=== PATIENT | male | born 1990 | race Hispanic/Latino ===

== ENCOUNTER 2020-02-06 10:36 | Outpatient (CLI) | payer SELFPAY ==
[2020-02-06 11:50] LABS: Basophils Percent Auto 0.4 % (0.2-1.2); Eosinophils Absolute Auto 0.1 K/mm3 (0-0.3); Eosinophils Percent Auto 1.8 % (0-4.4); Hematocrit 44.3 % (42.0-52.0); Hemoglobin 14.9 g/dL (14.0-18.0); Immature Granulocyte Absolute 0.01 K/mm3 (0.00-0.031); Immature Granulocyte Percent A 0.2 % (0-0.5); Lymphocytes Absolute Auto 2.06 K/mm3 (0.9-3.2); Lymphocytes Percent Auto 40.2 % (18.3-44.2); Mean Corpuscular HGB Conc 33.6 g/dl (32-36); Mean Corpuscular Hemoglobin 28.7 pg (26-34); Mean Corpuscular Volume 85.2 fl (80-100); Mean Platelet Volume 9.2 fl (7.4-10.4); Monocytes Absolute Auto 0.4 K/mm3 (0.1-0.6); Monocytes Percent Auto 7.8 % (2.6-8.5); Neutrophils Absolute Auto 2.5 K/mm3 (1.3-6.7); Neutrophils Percent Auto 49.6 % (45.5-73.1); Platelet Count Result 241 k/mm3 (150-375); Red Cell Distribution Width 13.2 % (11.5-14.5); White Blood Count 5.1 K/mm3 (4.5-10.0)
[2020-02-06 12:01] LABS: Alanine Aminotransferase 12 U/L (4-50); Albumin Level 4.8 g/dL (3.5-5.1); Alkaline Phosphatase 59 U/L (38-126); Aspartate Amino Transferase 22 U/L (17-59); Bilirubin,Total 2.4 mg/dL (0.2-1.3); Blood Urea Nitrogen 12 mg/dL (9-20); Calcium 9.4 mg/dL (8.4-10.2); Carbon Dioxide 31 mmol/L (22-30); Chloride 101 mmol/L (98-107); Estimated Glomerular Filt Rate > 60; Glucose 87 mg/dL (75-110); Potassium 4.1 mmol/L (3.4-5.0); Sodium 137 mmol/L (137-145)
[2020-02-06 12:17] LABS: Erythrocyte Sedimentation Rate 6 mm/hr (0-20)
[2020-02-06 12:29] LABS: Creatine Kinase 75 U/L (55-170)
== END 2020-02-06 10:37 | disposition home or self-care (01) ==
PROVIDERS: PCP Family Medicine; Visit Provider Family Medicine
DX: K59.00 Constipation, unspecified (principal); R10.9 Unspecified abdominal pain; E04.9 Nontoxic goiter, unspecified; M79.10 Myalgia, unspecified site
CPT/HCPCS: 36415; 80053; 82550; 84443; 85025; 85652

== ENCOUNTER 2020-02-21 17:25 | Emergency (ER) | payer SELFPAY ==
--- NOTE | ~2020-02-21 | XR_ITS ---
EXAMINATION: XR chest 2V DATE: 02/21/2020 17:57 INDICATION: Lower rib pain. Right abdominal pain. TECHNIQUE: Frontal and lateral views of the chest were obtained. COMPARISON: None. FINDINGS: The chest demonstrates clear lungs without pneumonia, pleural effusion, or pneumothorax. Th e heart size is normal. IMPRESSION: 1. No acute cardiopulmonary disease. Reviewed, dictated and finalized at location A.
--- NOTE | ~2020-02-21 | CT_ITS ---
EXAMINATION: CT abdomen pelvis w con DATE: 02/21/2020 20:15 INDICATION: Abdominal pain. TECHNIQUE: Computed tomography (CT) of the abdomen and pelvis was performed with 100 mL Omnipaque 350 intravenous contrast. Automated exposure control and iterative reconstruction technique were employe d. The dose-length product was 182.14 mGy-cm. COMPARISON: None. FINDINGS: The visualized portions of the lung bases demonstrate minimal atelectasis. No pleural effus ion. The heart size is normal. No pericardial effusion. The liver, gallbladder, spleen, pancreas, adr enal glands, and kidneys are normal. There are no dilated loops of bowel. The appendix is normal. The re are no pathologically enlarged lymph nodes. There is no free intraperitoneal fluid. The bones are unremarkable. IMPRESSION: 1. No etiology for the patient's symptoms. Reviewed, dictated and finalized at location A.
[2020-02-21 17:30] VITALS: BP 136/91; PULSE 70; RESP 18; TEMP 36.3; O2SAT 100
--- NOTE | 2020-02-21 17:36 | ED.GENADULT ---
HPI - General Adult General Chief complaint: Abdominal Pain Stated complaint: abd pain Time Seen by Provider: 02/21/20 17:36 Source: patient Mode of arrival: ambulatory Limitations: no limitations History of Present Illness HPI narrative: 29-year-old male patient presents to the [facility] with complaints of upper abdominal pain/lower rib pain for the past 2 weeks. Patient states he also has pain that sometimes radiates to the right shoulder. Denies any fevers, nausea, vomiting or diarrhea. Patient states that sometimes he feels like he has a metallic taste in his mouth. Patient last ate about noon today was able to keep everything down. Denies any pain with urination. Related Data Home Medications Medication Instructions Recorded Confirmed loratadine 10 mg tablet 10 mg PO DAILY 01/04/20 Allergies Allergy/AdvReac Type Severity Reaction Status Date / Time Sulfa (Sulfonamide Allergy Unknown Unknown Verified 02/21/20 17:36 Antibiotics) Review of Systems Review of Systems: Narrative: CONSTITUTIONAL: Denies fever, chills, or sweats. EYES: Denies visual changes, redness, or discharge. ENT: Denies rhinorrhea, congestion, sore throat, or otalgia. CARDIOVASCULAR: Positive bilateral lower chest pain/rib pain that radiates to right shoulder at times, denies palpitations, or edema. RESPIRATORY: Denies cough or dyspnea. GASTROINTESTINAL: Positive bilateral upper abdominal pain, denies nausea, vomiting, or diarrhea. GENITOURINARY: Denies dysuria or hematuria. SKIN: Denies rash or itching. MUSCULOSKELETAL: Denies back pain, joint pain, or myalgia. NEUROLOGIC: Denies headache, numbness, or weakness. PSYCHIATRIC: Denies anxiety or depression. PMFSH Social History Social History Smoking status: Never smoker Second hand tobacco smoke exposure: No Alcohol intake: current Substance use: never Substance use type: does not use Gender identity (if verbalized by the patient): Male Comments At the time of my signature I agree with nursing past medical history, surgical, social, and family history. There is no relevant family history pertinent to the presenting complaint. Exam Narrative: Exam Narrative: GENERAL: Well-appearing, well-nourished, and in no acute distress. HEAD: Normocephalic, atraumatic. EYES: PERRLA and EOMI. ENT: Nares clear, no rhinorrhea or epistaxis. Mucous membranes moist. NECK: Supple. No lymphadenopathy CHEST: Clear to auscultation. No respiratory distress. HEART: Regular rate and rhythm. No murmur heard. Normal peripheral pulses. ABDOMEN: Soft, nontender, nondistended, normal active bowel sounds. EXTREMITIES: Normal range of motion. No edema. SKIN: Warm, dry, no rash. NEURO: No focal deficits. Alert and oriented x3. Course Reevaluation(s) Reevaluation #1: Reevaluated patient. Discussed with patient that his labs overall look well. Patient voiced concerns stating that when he had his labs drawn a couple weeks ago his bilirubin was elevated and was concerned about it being elevated began. Discussed with him that couple weeks ago his bilirubin was 2.3 and outs 2.6. Patient states that his doctor had had a possible discussion of doing an ultrasound on him due to this chronic abdominal pain. Discussed with patient that since he is here we will go ahead and do a CT scan to see if there is anything obvious and then if that looks okay he will just follow-up with his primary doctor. Patient verbalized understanding of this denies any other questions or concerns. Date: 02/21/20 Time: 19:27 Reevaluation #2: Reevaluated patient. Discussed with him the his CT looks good as well as normal blood work. Discussed with patient that we will go ahead and discharge him home with some omeprazole for possible GERD I want him to follow-up with his primary doctor. Discussed with him if he has worsening symptoms such as fevers, chest pain, shortness of breath or worse
--- NOTE | 2020-02-21 17:43 | ECG_ITS ---
Measurements Intervals [place] Rate: 61 P: 72 CA: 124 QRS: 70 QRSD: 96 T: 72 QT: 389 QTc: 393 Interpretive Statements SINUS RHYTHM BASELINE ARTIFACT- I, III, AVL, AVF NORMAL ECG Electronically Signed On 02-21-2020 20:20:29 CDT by Mario Clifford D.O.
[2020-02-21 18:15] LABS: Basophils Percent Auto 0.3 % (0.2-1.2); Eosinophils Absolute Auto 0.1 K/mm3 (0-0.3); Eosinophils Percent Auto 1.1 % (0-4.4); Hematocrit 48.5 % (42.0-52.0); Hemoglobin 16.5 g/dL (14.0-18.0); Immature Granulocyte Absolute 0.01 K/mm3 (0.00-0.031); Immature Granulocyte Percent A 0.1 % (0-0.5); Lymphocytes Absolute Auto 2.37 K/mm3 (0.9-3.2); Lymphocytes Percent Auto 33.6 % (18.3-44.2); Mean Corpuscular Hemoglobin 28.7 pg (26-34); Mean Corpuscular Volume 84.3 fl (80-100); Mean Platelet Volume 9.2 fl (7.4-10.4); Monocytes Absolute Auto 0.4 K/mm3 (0.1-0.6); Monocytes Percent Auto 5.9 % (2.6-8.5); Neutrophils Absolute Auto 4.2 K/mm3 (1.3-6.7); Platelet Count Result 275 k/mm3 (150-375); Red Blood Count 5.75 M/mm3 (4.6-6.20); Red Cell Distribution Width 13.2 % (11.5-14.5); White Blood Count 7.1 K/mm3 (4.5-10.0)
[2020-02-21 18:20] LABS: Add Urine Microscopic? YES; Appearance Urine Clear (Clear); Bacteria Urine Trace /hpf; Bilirubin Urine Negative (Negative); Blood Urine Negative (Negative); Color Urine Straw (Yellow); Glucose Urine UA Negative (Negative); Ketones Urine 1+ mg/dL (Negative); Leukocyte Esterase Ur Negative LEU/UL (Negative); Nitrate Urine Negative (Negative); Protein Urine Negative (Negative); RBC Urine 0-2 /hpf (0-2); Specific Grav Ur 1.015 (1.001-1.035); Urobilinogen Urine Negative mg/dL (<2.0); WBC Urine 0-3 /hpf
[2020-02-21 18:26] LABS: Alanine Aminotransferase 14 U/L (4-50); Albumin Level 5.3 g/dL (3.5-5.1); Alkaline Phosphatase 68 U/L (38-126); Aspartate Amino Transferase 29 U/L (17-59); Bilirubin,Total 2.6 mg/dL (0.2-1.3); Blood Urea Nitrogen 16 mg/dL (9-20); Calcium 9.8 mg/dL (8.4-10.2); Carbon Dioxide 27 mmol/L (22-30); Chloride 97 mmol/L (98-107); Estimated CRCL calculation 98 ml/min; Estimated Glomerular Filt Rate > 60; Glucose 93 mg/dL (75-110); Lipase 89 U/L (23-300); Potassium 3.5 mmol/L (3.4-5.0); Sodium 137 mmol/L (137-145)
[2020-02-21 19:42] VITALS: BP 115/72; PULSE 64; RESP 18; O2SAT 100
[2020-02-21] MEDS: BELLADONNA ALK/PHENOB ELIX 10 ML, MAG HYDROX/ALUMINUM HYD/SIMETH 30 ML, LIDOCAINE HCL 2... PO (20:19)
[2020-02-21 21:37] VITALS: BP 116/68; PULSE 78; RESP 16; O2SAT 100
== END 2020-02-21 21:37 | disposition home or self-care (01) ==
PROVIDERS: Emergency Medicine; Emergency Provider Nurse Practitioner Family; PCP Family Medicine
DX: K21.9 Gastro-esophageal reflux disease without esophagitis (principal); R03.0 Elevated blood-pressure reading, without diagnosis of hypertension
CPT/HCPCS: 36415; 71046; 74177; 80053; 81001; 83690; 85025; 93005; 99284; A9270; Q9967

== ENCOUNTER → 2020-03-04 07:59 | Outpatient (CLI) | payer SELFPAY ==
--- NOTE | ~2020-03-04 | US_ITS ---
EXAMINATION: US right upper quadrant EXAM DATE: 03/04/2020 08:19 INDICATION: Elevated bilirubin, jaundice. TECHNIQUE: Multiple grayscale and Doppler images of the abdomen right upper quadrant were obtained (jimmy y a technologist who performed the scan) and subsequently reviewed. There is no prior study for donita bentley. FINDINGS: The pancreatic head and body are normal in appearance. The pancreatic tail is not visualized. The l iver has normal echogenicity and contour. There are no focal liver lesions identified. There is no evidence of intrahepatic biliary duct dilation. Portal venous flow was seen in the hepatopedal, nor mal direction and has normal Doppler waveform. No right-sided hydronephrosis. Common bile duct measures 3 mm, which is normal. The gallbladder wall is normal in thickness, with ex pected amount of distention. No sonographic evidence of pericholecystic fluid. There is no cholelit hiases. Technologist performing exam reports patient did not demonstrate sonographic Argueta's sign. Please note that this sign is less reliable in patients who have received pain medication. IMPRESSION: 1. Unremarkable abdominal ultrasound exam. Reviewed, dictated and finalized at location A.
== END ==
PROVIDERS: PCP Family Medicine; Visit Provider Family Medicine
DX: R17 Unspecified jaundice (principal)
CPT/HCPCS: 76705

== ENCOUNTER 2020-06-22 01:39 | Outpatient (CLI) | payer BC, SELFPAY ==
[2020-06-22 21:19] LABS: SARS-CoV-2 RNA PCR Negative
== END 2020-06-22 01:40 | disposition home or self-care (01) ==
LOC: ANHCOVIDDT 01:40
PROVIDERS: PCP Family Medicine; Visit Provider Internal Medicine Gastroenterology
DX: Z01.812 Encounter for preprocedural laboratory examination (principal); Z20.828 Contact with and (suspected) exposure to other viral communicable diseases
CPT/HCPCS: 87635; C9803; U0003

== ENCOUNTER 2020-06-26 01:46 | Day surgery (SDC) | payer BC, SELFPAY ==
[2020-06-26 10:51] VITALS: BP 124/69; PULSE 97; RESP 16; TEMP 36.8; O2SAT 100; BMI 19.3
[2020-06-26] MEDS: LACTATED RINGERS 1,000 ML 150 ML IV CONT (10:59)
--- NOTE | 2020-06-26 11:00 | P.PNAN_ITS ---
Anes - Initial Pre Proc Eval Procedure: Operation Date: 06/26/20 12:00 Proposed Procedures p Colonoscopy - Dima Hedrick DO Date/Time: 06/26/20 11:00 Surgeon: Dima Hedrick DO Pre Op Diagnosis: Upper Abdominal Pain Patient Data Age: 29 Gender: M Height: 1.7 m Weight: 55.9 kg Last Vital Signs Temp 36.8 C 06/26/20 10:51 Pulse 97 06/26/20 10:51 Resp 16 06/26/20 10:51 BP 124/69 06/26/20 10:51 Pulse Ox 100 06/26/20 10:51 Allergies Allergy/AdvReac Type Severity Reaction Status Date / Time Sulfa (Sulfonamide Allergy Mild Unknown Verified 06/26/20 10:48 Antibiotics) Home Medications Medication Instructions Recorded Confirmed Type omeprazole 20 mg capsule,delayed 20 mg PO DAILY #30 cap 04/11/20 06/19/20 Rx release loratadine [Claritin] 10 mg PO DAILY PRN 06/19/20 06/19/20 History Patient hx anesthesia problems: none Family hx anesthesia problems: none PENDING SALE TO [facility] Past Medical History Medical History (Updated 04/15/20 @ 20:06 by Sherine Moses MD) Palpitations Social History Social History (Updated 04/11/20 @ 10:32 by Shanel Combs) Social History: Single Smoking status: Never smoker Second hand tobacco smoke exposure: No Alcohol intake: never Substance use: never Substance use type: does not use Living arrangements: with roommate(s) Gender identity (if verbalized by the patient): Male Spiritual care concerns: No Anes - Eval Final PreProcedure Day of Procedure 06/26/20 11:00 Patient weight: normal Heart: regular rate and rhythm Lungs: clear to auscultation and normal air movement Airway: Mallampati scale class II Neurological: alert and oriented Last oral intake: >/= 8 hours ASA classification: II Emergent: no Anesthetic plan: proceed Anesthesia type and monitoring: general GIVS Informed Consent: The patient's anesthetic plan and its attendant risks and benefits were discussed with the patient/family/POA. Questions were solicited and answers provided to the satisfaction of the patient/family/POA.
--- NOTE | 2020-06-26 11:29 | PM.IMHP ---
H&P: HPI History of Present Illness Date/Time: 06/26/20 11:29 Chief complaint: Upper Abdominal Pain Narrative: Reason for visit colonoscopy. This very pleasant gentleman seen in consultation at request the primary physician. Impression: Your have a gentleman with underlying abdominal pain. He has episodes of constipation. This may be secondary her lying IBS. Inflammatory neoplastic disease will be excluded. There may be a component of underlying functional dyspepsia. Recommendation: Colonoscopy. History: This very pleasant gentleman is being evaluated for abdominal pain. He he has complaints of upper abdominal pain. Pain is usually exacerbated an empty stomach and improved with eating. Occasionally the pain is worse with eating. Does have constipation. Defecation and decreases his symptomatology. Hematochezia, melena and acholic stools night. He had an EGD which was unremarkable. Physical examination: General: very pleasant patient in no acute distress. HEENT: Head was normocephalic sclerae is clear mouth without masses neck was supple. Heart: Rate rhythm regular without S3 or S4. Lungs: CTA. Abdomen: Soft with no guarding or rigidity. Bowel sounds were active. Neurologic: Cranial nerves 2 through 12 intact. No focal defects. No clonus. Musculoskeletal system: Revealed no joint tenderness or swelling no muscle atrophy. Extremities: Reveal no significant edema. Skin: Warm and dry with normal turgor. Mental status: intact. Patient is alert and oriented. Review of Systems Review of Systems: All systems reviewed & are unremarkable except as noted in HPI and below PMFSH Past Medical History Medical History (Updated 04/15/20 @ 20:06 by Sherine Moses MD) Palpitations Social History Social History (Updated 04/11/20 @ 10:32 by Shanel Combs) Social History: Single Smoking status: Never smoker Second hand tobacco smoke exposure: No Alcohol intake: never Substance use: never Substance use type: does not use Living arrangements: with roommate(s) Gender identity (if verbalized by the patient): Male Spiritual care concerns: No Meds Home Medications and Allergies Home Medications Medication Instructions Recorded Confirmed Type omeprazole 20 mg capsule,delayed 20 mg PO DAILY #30 cap 04/11/20 06/19/20 Rx release loratadine [Claritin] 10 mg PO DAILY PRN 06/19/20 06/19/20 History Allergies Allergy/AdvReac Type Severity Reaction Status Date / Time Sulfa (Sulfonamide Allergy Mild Unknown Verified 06/26/20 10:48 Antibiotics) Vital Signs Vital Signs - 24 hr 06/26/20 10:51 Temperature 36.8 C Pulse Rate 97 Respiratory Rate 16 Blood Pressure 124/69 Pulse Oximetry 100
[2020-06-26 12:02] VITALS: BP 92/55; PULSE 84; RESP 16; O2SAT 100
[2020-06-26 12:12] VITALS: BP 95/63; PULSE 72; RESP 16; O2SAT 100
[2020-06-26 12:22] VITALS: BP 107/70; PULSE 80; RESP 16; O2SAT 100
== END 2020-06-26 12:42 | disposition home or self-care (01) ==
PROVIDERS: PCP Family Medicine; Visit Provider Internal Medicine Gastroenterology
PROC: 0DJD8ZZ Inspection of Lower Intestinal Tract, Via Natural or Artificial Opening Endoscopic (ICD-10-PCS; CPT 45378; principal; 2020-06-26 12:00)
DX: R10.9 Unspecified abdominal pain (principal); K59.00 Constipation, unspecified
CPT/HCPCS: 45380; 88305; J2704; J7120

== ENCOUNTER 2020-08-16 15:04 | Outpatient (CLI) | payer BC, SELFPAY ==
--- NOTE | ~2020-08-16 | XR_ITS ---
XR lumbar spine 2-3V DATE: 08/16/2020 15:23 INDICATION: Low back pain. No injury. TECHNIQUE: AP, lateral, coned lateral lumbosacral views COMPARISON: None FINDINGS: Normal alignment of the lumbar spine. No fracture or bone destruction or spondylolisthesis. The lumbar pedicles are intact. Lumbar and lumbosacral interspaces appear well preserved. The sacroi liac joints appear normal. IMPRESSION: Negative Reviewed, dictated and finalized at location B. RVISOR MOLDING IMPRESSION: Negative
--- NOTE | ~2020-08-16 | XR_ITS ---
XR sacrum coccyx min 2V DATE: 08/16/2020 15:23 INDICATION: Low back, sacral pain. TECHNIQUE: AP, angled AP, lateral views COMPARISON: None FINDINGS: Normal alignment at the pubic symphysis and sacral iliac joints. No sacral fracture or bone destruction is evident. Lumbar and lumbosacral interspaces are well preserved. IMPRESSION: Negative Reviewed, dictated and finalized at location B. DEVELOPER IMPRESSION: Negative
== END 2020-08-16 15:05 | disposition home or self-care (01) ==
PROVIDERS: PCP Family Medicine; Visit Provider Family Medicine
DX: M54.5 Low back pain (principal)
CPT/HCPCS: 72100; 72220

== ENCOUNTER → 2021-02-20 14:18 | Outpatient (CLI) | payer BC, SELFPAY ==
--- NOTE | ~2021-02-20 | US_ITS ---
EXAMINATION: US abdomen complete EXAM DATE: 02/20/2021 14:48 INDICATION: Generalized abdominal pain. TECHNIQUE: Multiple grayscale and Doppler images of the complete abdomen were obtained (by a technolo gist who performed the scan) and subsequently reviewed. Comparison is made to prior examination from 03/04/2020. FINDINGS: The abdominal aorta is normal in caliber. Visualized portion IVC is patent. The pancreatic head a nd body are normal in appearance. The pancreatic tail is not visualized. The liver has normal echogenicity and contour. There are no focal liver lesions identified. There is no evidence of intrahepatic biliary duct dilation. Portal venous flow was seen in the hepatopedal , normal direction and has normal Doppler waveform. Common bile duct measures 4 mm, which is normal. The gallbladder wall is normal in thickness, with ex pected amount of distention. No sonographic evidence of pericholecystic fluid. There is no cholelit hiases. Technologist performing exam reports patient did not demonstrate sonographic Argueta's sign. Please note that this sign is less reliable in patients who have received pain medication. Right kidney: There is normal contour and echogenicity. It measures 9.4 x 3.5 x 4.9 centimeters. T here are no focal renal lesions identified. There is no hydronephrosis. Left kidney: There is normal contour and echogenicity. It measures 9.8 x 5.4 x 5.0 centimeters. Th ere are no focal renal lesions identified. There is no hydronephrosis. The spleen measures 8.2 centimeters and is morphologically normal. IMPRESSION: 1. Unremarkable complete abdominal ultrasound exam. Reviewed, dictated and finalized at location B.
== END ==
PROVIDERS: PCP Family Medicine; Visit Provider Physician Assistant Medical
DX: R10.84 Generalized abdominal pain (principal)
CPT/HCPCS: 76700